=== PATIENT | female | born 1980 | race Caucasian/White ===

== ENCOUNTER 2017-05-13 07:13 | Emergency (ER) | payer OTHER ==
[2017-05-13 07:21] VITALS: BMI 47.1
[2017-05-13] MEDS ORDERED: Sodium Chloride 0.9% 1,000 ML IV STA (07:51)
--- NOTE | 2017-05-13 08:42 | ED PDOC ---
HPI: CCC, URI, Sore Throat Time Seen by Provider: 05/13/17 07:20 Chief Complaint (Nursing): ENT Problem Chief Complaint (Provider): Sore Throat, Fever, Body Aches History Per: Patient History/Exam Limitations: no limitations Have you had recent travel within the past 21 days to any of the following countries: [place], [place], [place] or [place]?: No Current Symptoms Are (Timing): Still Present Location Of Pain: Ear(s), Throat Associated Symptoms: Fever, Sore Throat, Cough (Mild dry Cough) Ear Symptoms: Bilateral: Ear Pain Additional Complaint(s): Manuela Currie, a 4 year old female, presents to the ED complaining of fever x1 day, body aches and sore throat she has been experiencing since last night. The patient states that the sore throat is constant and sever and she has pain when swallowing. She reports that she took nyquil for her fever. The patient further states that she had a mild dry cough and ear pain bilaterally along with malaise and fatigue. Denies any other medical complaints. Past Medical History Reviewed: Historical Data, Nursing Documentation, Vital Signs Vital Signs: Last Vital Signs Temp 98.6 F 05/13/17 10:22 Pulse 88 05/13/17 10:23 Resp 16 05/13/17 10:23 BP 132/75 05/13/17 10:23 Pulse Ox 100 05/13/17 10:23 - Medical History PMH: Asthma, Back Problems, Diabetes, HTN, Hypercholesterolemia Denies: Chronic Kidney Disease - Surgical History Surgical History: Tonsillectomy, (x 3) Other surgeries: Tubal Ligation - Family History Family History: States: Hypertension - Home Medications Home Medications: Ambulatory Orders Medication Instructions Recorded Albuterol Sulfate [Proventil Hfa] 2 puff IH Q6 PRN 06/05/15 GlipiZIDE [Glucotrol] mg PO DAILY 06/05/15 Ibuprofen [Motrin] 600 mg PO Q8 #30 tab 06/05/15 MetFORMIN [glucoPHAGE] 1,000 mg PO BID 06/05/15 Cyclobenzaprine HCl [Flexeril] 10 mg PO BID PRN #12 tab 06/12/15 Ergocalciferol [Vitamin D] 50,000 iu PO Q7D 06/12/15 Losartan [Cozaar] mg PO DAILY 06/12/15 Oxycodone HCl/Acetaminophen 1 tab PO Q6H PRN #10 tab 06/12/15 [Percocet 325 mg-5 mg] Pravastatin Sodium [Pravastatin] mg PO DAILY 06/12/15 Cyclobenzaprine HCl [Flexeril] 10 mg PO BID PRN #12 tab 07/09/15 Ibuprofen [Motrin Tab] 800 mg PO Q8 PRN #20 tab 07/22/15 Azithromycin [Zithromax Z-Michael] 250 mg PO DAILY #1 tab 11/16/15 Prednisone 3 tab-cap PO QAM #12 tab 11/16/15 Oseltamivir [Tamiflu] 75 mg PO BID #10 cap 12/09/16 Promethazine HCl/Codeine 5 - 10 ml PO Q6 PRN #6 oz 12/09/16 [Prometh-Codein 6.25-10 mg/5 ml] predniSONE [predniSONE Tab] 60 mg PO QAM #12 tab 12/09/16 Azithromycin [Z-Michael] 250 mg PO DAILY #6 tab 05/13/17 Ibuprofen [Motrin] 600 mg PO Q6 #20 tab 05/13/17 Oseltamivir [Tamiflu] 75 mg PO BID #10 cap 05/13/17 - Allergies Allergies/Adverse Reactions: Allergies Allergy/AdvReac Type Severity Reaction Status Date / Time Penicillins Allergy RASH Verified 12/09/16 03:31 simvastatin Allergy RASH Verified 12/09/16 03:31 seafood Allergy RASH Uncoded 12/09/16 03:31 Review of Systems ROS Statement: Except As Marked, All Systems Reviewed And Found Negative Constitutional: Positive for: Fever, Malaise, Other (Body aches) ENT: Positive for: Ear Pain (Bilateral ear pain), Throat Pain Respiratory: Positive for: Cough (Mild dry cough) Physical Exam - Reviewed Nursing Documentation Reviewed: Yes Vital Signs Reviewed: Yes - Physical Exam Appears: Positive for: Non-toxic, No Acute Distress Head Exam: Positive for: ATRAUMATIC, NORMAL INSPECTION, NORMOCEPHALIC Skin: Positive for: Normal Color, Warm, Dry Eye Exam: Positive for: Normal appearance, EOMI, PERRL ENT: Positive for: Other (Tonsillar hyperemia enlarged;no peritonsillar abscess ; Ears are normal.). Negative for: Tonsillar Exudate Neck: Positive for: Normal, Painless ROM, Supple Cardiovascular/Chest: Positive for: Regular Rate, Rhythm, Chest Non Tender. Negative for: Bradycardia, Tachycardia Respiratory: Positive for: Normal Breath Sounds. Negative for: Wheezing, Respiratory Distress Gastrointestinal/Abdominal: Positive for: Normal Exam, Bowel Sounds, Soft. Negative for: Tenderness, Guarding, Rebound Back: Positive for: Normal Inspection Extremity: Positive for: Normal ROM. Negative for: Tenderness, Pedal Edema, Deformity, Swelling Neurologic/Psych: Positive for: Alert, Oriented, Gait - Laboratory Results Result Diagrams: 05/13/17 08:06 05/13/17 08:06 - ECG O2 Sat by Pulse Oximetry: 97 (RA) Pulse Ox Interpretation: Normal - Progress Re-evaluation Time: 10:31 Condition: Re-examined, Improved Medical Decision Making Medical Decision Makin Initial Impression: 36 year old female presenting with tonsilitis Differentials: Viral tonsilitis vs Influenza vs Strep throat Initial plan: * Comp Metabolic Panel * Upreg * Udip * CBC * NS 1000mls IV 1000mls/hr * Toradol 30mg IVP * Tylenol 650mg PO * Influenza A B * Rapid strep group * Reevaluation Scribe Attestation Documented by Mary Lou Maloney acting as a scribe for Sunil Kothari MD. Provider Attestation: All medical record entries made by the Scribe were at my direction and personally dictated by me. I have reviewed the chart and agree that the record accurately reflects my personal performance of the history, physical exam, medical decision making, and the department course for this patient. I have also personally directed, reviewed, and agree with the discharge instructions and disposition. Disposition - Clinical Impression Clinical Impression: Influenza A, Strep pharyngitis - Patient ED Disposition Is Patient to be Admitted: No Doctor Will See Patient In The: Office Counseled Patient/Family Regarding: Studies Performed, Diagnosis, Need For Followup - Disposition Referrals: Rina Anderson MD [Medical Doctor] - Disposition: Routine/Home Disposition Time: 10:33 Condition: GOOD Additional Instructions: Take medications as instructed. Follow up with your PCP in 2-3 days. Prescriptions: Azithromycin [Z-Michael] 250 mg PO DAILY #6 tab Ibuprofen [Motrin] 600 mg PO Q6 #20 tab Oseltamivir [Tamiflu] 75 mg PO BID #10 cap Instructions: Influenza (ED), Strep Throat (ED)
[2017-05-13 08:53] LABS: BASO # 0.1 K/uL (0.0-0.2); BASO % 0.3 % (0.0-2.0); EOS % 0.2 % (0.0-4.0); HEMOGLOBIN 12.1 g/dL (12.0-16.0); LYMPH # 1.3 K/uL (1.0-4.3); LYMPH % 6.7 % (20.0-40.0); MEAN CELL VOLUME 85.4 fl (81.0-99.0); MEAN CORPUSCULAR HEMOGLOBIN 28.2 pg (27.0-31.0); MEAN PLATELET VOLUME 8.6 fl (7.2-11.7); MONO # 1.2 K/uL (0.0-0.8); MONO % 6.3 % (0.0-10.0); NEUT # 16.3 K/uL (1.8-7.0); NEUT % 86.5 % (50.0-75.0); NRBC % 0.1 % (0.0-0.0); PLATELET COUNT 278 K/uL (130-400); RBC 4.29 Mil/uL (3.80-5.20); RED CELL DISTRIBUTION WIDTH 14.7 % (11.5-14.5); WHITE BLOOD COUNT 18.8 K/uL (4.8-10.8)
[2017-05-13 09:06] LABS: BLOOD UREA NITROGEN 6 mg/dl (7-17); CALCIUM 8.9 mg/dL (8.4-10.2); GFR AFRICAN-AMERICAN > 60; GFR NON-AFRICAN AMERICAN > 60
[2017-05-13 10:22] VITALS: TEMP 98.6
[2017-05-13 10:24] VITALS: BP 132/75; PULSE 88; RESP 16
[2017-05-13 10:34] VITALS: O2SAT 97
[2017-05-13 12:19] LABS: BANDS 2 % (0-2); LYMPHOCYTE 9 % (20-50); MONOCYTE 6 % (0-10); NEUTROPHIL 83 % (42-75); TOTAL CELLS COUNTED 100
[2017-05-13 12:21] LABS: ANISOCYTOSIS SLIGHT; PLATELET ESTIMATE NORMAL (NORMAL)
[2017-05-13 12:23] LABS: GIANT PLATELETS PRESENT; LARGE PLATELETS PRESENT
== END 2017-05-13 10:54 | disposition home or self-care (01) ==
LOC: H.ER 07:13
DX: J02.0 Streptococcal pharyngitis (principal); J10.1 Influenza due to other identified influenza virus with other respiratory manifestations; J45.909 Unspecified asthma, uncomplicated; E11.9 Type 2 diabetes mellitus without complications; I10 Essential (primary) hypertension; Z88.0 Allergy status to penicillin

== ENCOUNTER 2018-10-03 05:13 | Emergency (ER) | payer OTHER ==
[2018-10-03 05:13] VITALS: BMI 47.1
[2018-10-03 05:33] VITALS: TEMP 98.2; O2SAT 98
--- NOTE | 2018-10-03 06:32 | ED PDOC ---
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 She notes seeing her PMD who referred her to PT and gave her painkillers like percocet, but she reports being tired of taking them and "wants to know what's wrong." PMD: Dr Anderson Past Medical History Reviewed: Historical Data, Nursing Documentation, Vital Signs Vital Signs: Last Vital Signs Temp 98.2 F 10/03/18 05:30 Pulse 90 10/03/18 05:30 Resp 17 10/03/18 05:30 BP 151/98 H 10/03/18 05:30 Pulse Ox 98 10/03/18 05:30 - Medical History PMH: Asthma, Back Problems, Diabetes, HTN, Hypercholesterolemia Denies: Chronic Kidney Disease - Surgical History Surgical History: Tonsillectomy, (x 3) - Family History Family History: States: Hypertension - Social History Current smoker - smoking cessation education provided: No Alcohol: None Drugs: Denies - Home Medications Home Medications: Ambulatory Orders Medication Instructions Recorded Albuterol Sulfate [Proventil Hfa] 2 puff IH Q6 PRN 06/05/15 Ibuprofen [Motrin] 600 mg PO Q8 #30 tab 06/05/15 RX: GlipiZIDE [Glucotrol] mg PO DAILY 06/05/15 RX: MetFORMIN [glucoPHAGE] 1,000 mg PO BID 06/05/15 Cyclobenzaprine HCl [Flexeril] 10 mg PO BID PRN #12 tab 06/12/15 Ergocalciferol [Vitamin D] 50,000 iu PO Q7D 06/12/15 Losartan [Cozaar] mg PO DAILY 06/12/15 Oxycodone HCl/Acetaminophen 1 tab PO Q6H PRN #10 tab 06/12/15 [Percocet 325 mg-5 mg] Pravastatin Sodium [Pravastatin] mg PO DAILY 06/12/15 Cyclobenzaprine HCl [Flexeril] 10 mg PO BID PRN #12 tab 07/09/15 Ibuprofen [Motrin Tab] 800 mg PO Q8 PRN #20 tab 07/22/15 Azithromycin [Zithromax Z-Michael] 250 mg PO DAILY #1 tab 11/16/15 RX: Prednisone 3 tab-cap PO QAM #12 tab 11/16/15 Oseltamivir [Tamiflu] 75 mg PO BID #10 cap 12/09/16 RX: Promethazine HCl/Codeine 5 - 10 ml PO Q6 PRN #6 oz 12/09/16 [Prometh-Codein 6.25-10 mg/5 ml] RX: predniSONE [predniSONE Tab] 60 mg PO QAM #12 tab 12/09/16 Ibuprofen [Motrin] 600 mg PO Q6 #20 tab 05/13/17 Oseltamivir [Tamiflu] 75 mg PO BID #10 cap 05/13/17 RX: Azithromycin [Z-Michael] 250 mg PO DAILY #6 tab 05/13/17 Cyclobenzaprine [Cyclobenzaprine 10 mg PO BID #20 tab 10/03/18 HCl] RX: Naproxen 500 mg PO BID #60 tab 10/03/18 oxyCODONE/Acetaminophen [Percocet 1 ea PO Q6 #16 tab 10/03/18 5/325 mg Tab] - Allergies Allergies/Adverse Reactions: Allergies Allergy/AdvReac Type Severity Reaction Status Date / Time Penicillins Allergy RASH Verified 12/09/16 03:31 simvastatin Allergy RASH Verified 12/09/16 03:31 seafood Allergy RASH Uncoded 12/09/16 03:31 Review of Systems ROS Statement: Except As Marked, All Systems Reviewed And Found Negative Musculoskeletal: Positive for: Back Pain (lower 10/10 radiating down right lower extremity) Physical Exam - Reviewed Nursing Documentation Reviewed: Yes Vital Signs Reviewed: Yes - Physical Exam Appears: Positive for: Uncomfortable Head Exam: Positive for: ATRAUMATIC, NORMOCEPHALIC Skin: Positive for: Normal Color. Negative for: Rash Eye Exam: Positive for: Normal appearance Cardiovascular/Chest: Positive for: Regular Rate, Rhythm Respiratory: Positive for: Normal Breath Sounds. Negative for: Respiratory Distress Back: Positive for: Normal Inspection Extremity: Positive for: Other (straight right leg raise tenderness at 30 degrees) Neurologic/Psych: Positive for: Alert, Oriented (x3) - ECG O2 Sat by Pulse Oximetry: 98 (RA) Pulse Ox Interpretation: Normal Medical Decision Making Medical Decision Making: Time: 614 Initial Impression: 38 year old female with low back pain Initial Plan: --CT LS --U-dip --Flexeril 10mg PO --Toradol 30mg IM --Accucheck 0700 Patient care endorsed from this provider to Dr. Parsons pending CT and reevaluation. Scribe Attestation: Documented by Sushma Rodriguez, acting as a scribe for Clemente Martínez MD. Provider Scribe Attestation: All medical record entries made by the Scribe were at my direction and personally dictated by me. I have reviewed the chart and agree that the record accurately reflects my personal performance of the history, physical exam, medical decision making, and the department course for this patient. I have also personally directed, reviewed, and agree with the discharge instructions and disposition. Disposition - Clinical Impression Clinical Impression: Low back pain - Disposition Referrals: Arvind Lares MD [Staff Provider] - Disposition: Transfer of Care Disposition Time: 07:00 Condition: FAIR Additional Instructions: Take Naproxen twice per day. Take Percocet only for severe pain. Take Flexeril for severe pain. Do not drive or operate machinery when taking Percocet or Flexeril as they cause drowsiness. Contact the neurosurgeon as referred to schedule an appointment. Attend physical therapy as previously scheduled. Return to the emergency department if symptoms worsen or if new symptoms develop. Prescriptions: Cyclobenzaprine [Cyclobenzaprine HCl] 10 mg PO BID #20 tab RX: Naproxen 500 mg PO BID #60 tab oxyCODONE/Acetaminophen [Percocet 5/325 mg Tab] 1 ea PO Q6 #16 tab Instructions: Low Back Pain in Adults, Opioids for Short-Term Treatment of Pain Forms: [employer] (Azeri), [facility] ED School/Work Excuse Print Language: KOSOVAN
--- NOTE | 2018-10-03 07:52 | ED PDOC ---
- ECG O2 Sat by Pulse Oximetry: 98 (RA) Pulse Ox Interpretation: Normal Medical Decision Making Medical Decision Makin:00 Patient presents with chronic back pain, usually with muscle relaxers and opioids at home. Reports severe exacerbation while working overnight. Given Flexeril and Percocet in the ED Pending CT of lumbar spine. Scribe Attestation: Documented by Aisha Pimentel acting as a scribe for Charlee Parsons MD Provider Scribe Attestation: All medical record entries made by the Scribe were at my direction and personally dictated by me. I have reviewed the chart and agree that the record accurately reflects my personal performance of the history, physical exam, medical decision making, and the department course for this patient. I have also personally directed, reviewed, and agree with the discharge instructions and disposition. 8:00 Pt with improved pain. CT shows diffuse disc buldging of lumbar spine. Pt already scheduled for physical therapy next week. Will give referral to regulatory specialist. Rx for Naproxen, Percocet, and Flexeril. Pt advised to not drive or perform dangerous activities while taking Flexeril or Percocet. Work note akbar alexander. Return parameters discussed. Disposition - Clinical Impression Clinical Impression: Low back pain - POA Present On Arrival: None - Disposition Referrals: Arvind Lares MD [Staff Provider] - Disposition: Routine/Home Disposition Time: 08:00 Condition: IMPROVED Additional Instructions: Take Naproxen twice per day. Take Percocet only for severe pain. Take Flexeril for severe pain. Do not drive or operate machinery when taking Percocet or Flexeril as they cause drowsiness. Contact the neurosurgeon as referred to schedule an appointment. Attend physical therapy as previously scheduled. Return to the emergency department if symptoms worsen or if new symptoms develop. Prescriptions: Cyclobenzaprine [Cyclobenzaprine HCl] 10 mg PO BID #20 tab RX: Naproxen 500 mg PO BID #60 tab oxyCODONE/Acetaminophen [Percocet 5/325 mg Tab] 1 ea PO Q6 #16 tab Instructions: Low Back Pain in Adults, Opioids for Short-Term Treatment of Pain Forms: [employer] (Lao), [facility] ED School/Work Excuse Print Language: CITIZEN OF [place]
[2018-10-03 08:30] VITALS: BP 120/77; PULSE 85; RESP 18
--- NOTE | 2018-10-03 11:32 | CT ---
Date of service: 10/03/2018 PROCEDURE: CT Lumbar Spine without contrast HISTORY: low back pain COMPARISON: None available. TECHNIQUE: Axial computed tomography images were obtained of the lumbar spine without the use of intravenous contrast. Coronal and sagittal reformatted images were created and reviewed. Radiation dose: Total exam DLP = 1557.78 mGy-cm. This CT exam was performed using one or more of the following dose reduction techniques: Automated exposure control, adjustment of the mA and/or kV according to patient size, and/or use of iterative reconstruction technique. FINDINGS: VERTEBRAE: Unremarkable. No fracture. Normal alignment. DISCS/SPINAL CANAL/NEURAL FORAMINA: L1-2: Unremarkable. L2-3: Unremarkable. L3-4: Unremarkable. L4-5: There is broad-based posterior disc bulge associated with posterior ligament and facet joint hypertrophy which resulting in mild spinal stenosis. L5-S1: There is a small broad-based disc bulge associated with mild posterior ligament hypertrophy without evidence of significant spinal or neural foraminal narrowing. PARASPINAL SOFT TISSUES: Unremarkable. OTHER FINDINGS: None. IMPRESSION: Posterior disc bulge at L4-L5 and L5-S1 associated with posterior ligament and facet joint hypertrophy which resulting in mild spinal stenosis at L4-L5. Preliminary report was submitted by [facility] Radiology contains concordant findings.
== END 2018-10-03 08:31 | disposition home or self-care (01) ==
LOC: H.ER 05:13
DX: M54.5 Low back pain (principal); E11.9 Type 2 diabetes mellitus without complications; E66.9 Obesity, unspecified; E78.00 Pure hypercholesterolemia, unspecified; I10 Essential (primary) hypertension; Z79.84 Long term (current) use of oral hypoglycemic drugs; Z88.0 Allergy status to penicillin; M48.061 Spinal stenosis, lumbar region without neurogenic claudication
CPT/HCPCS: 72131; 81025; 82948; 96372; 99283; J1885

== ENCOUNTER 2018-11-01 02:18 | Emergency (ER) | payer OTHER ==
[2018-11-01 02:18] VITALS: BMI 47.1
[2018-11-01 02:32] VITALS: O2SAT 98
[2018-11-01] MEDS ORDERED: Sodium Chloride 0.9% 1,000 ML IV STA (02:53)
--- NOTE | 2018-11-01 03:06 | ED PDOC ---
HPI: Abdomen Time Seen by Provider: 11/01/18 02:50 Chief Complaint (Nursing): Abdominal Pain Chief Complaint (Provider): abdominal pain History Per: Patient History/Exam Limitations: no limitations Onset/Duration Of Symptoms: Days (2) Current Symptoms Are (Timing): Still Present Location Of Pain/Discomfort: Epigastric Associated Symptoms: Nausea, Vomiting, Diarrhea Additional Complaint(s): 38 y/o female history of diabetes, hypertension presents for evaluation of abdominal pain x 2 days. Associated vomiting, diarrhea. Patient states she stopped her Metformin on Sunday because she knew she would be drinking alcohol for the holiday and then started it up yesterday, prior to onset of symptoms. Patient states this has happened before. Denies fever, chest pain, shortness of breath, palpitations, urinary symptoms, recent travel, sick contacts. Past Medical History Reviewed: Historical Data, Nursing Documentation, Vital Signs Vital Signs: Last Vital Signs Temp 99.0 F 11/01/18 02:22 Pulse 89 11/01/18 02:22 Resp 17 11/01/18 02:22 BP 144/85 11/01/18 02:22 Pulse Ox 98 11/01/18 02:22 - Medical History PMH: Asthma, Back Problems, Diabetes, HTN, Hypercholesterolemia Denies: Chronic Kidney Disease - Surgical History Surgical History: Tonsillectomy, (x 3) - Family History Family History: States: Hypertension - Home Medications Home Medications: Ambulatory Orders Medication Instructions Recorded Albuterol Sulfate [Proventil Hfa] 2 puff IH Q6 PRN 06/05/15 GlipiZIDE [Glucotrol] mg PO DAILY 06/05/15 Ibuprofen [Motrin] 600 mg PO Q8 #30 tab 06/05/15 MetFORMIN [glucoPHAGE] 1,000 mg PO BID 06/05/15 Cyclobenzaprine HCl [Flexeril] 10 mg PO BID PRN #12 tab 06/12/15 Ergocalciferol [Vitamin D] 50,000 iu PO Q7D 06/12/15 Losartan [Cozaar] mg PO DAILY 06/12/15 Oxycodone HCl/Acetaminophen 1 tab PO Q6H PRN #10 tab 06/12/15 [Percocet 325 mg-5 mg] Pravastatin Sodium [Pravastatin] mg PO DAILY 06/12/15 Cyclobenzaprine HCl [Flexeril] 10 mg PO BID PRN #12 tab 07/09/15 Ibuprofen [Motrin Tab] 800 mg PO Q8 PRN #20 tab 07/22/15 Azithromycin [Zithromax Z-Michael] 250 mg PO DAILY #1 tab 11/16/15 Prednisone 3 tab-cap PO QAM #12 tab 11/16/15 Oseltamivir Cap [Tamiflu] 75 mg PO BID #10 cap 12/09/16 Promethazine HCl/Codeine 5 - 10 ml PO Q6 PRN #6 oz 12/09/16 [Prometh-Codein 6.25-10 mg/5 ml] predniSONE [predniSONE Tab] 60 mg PO QAM #12 tab 12/09/16 Azithromycin [Z-Michael] 250 mg PO DAILY #6 tab 05/13/17 Ibuprofen [Motrin] 600 mg PO Q6 #20 tab 05/13/17 Oseltamivir Cap [Tamiflu] 75 mg PO BID #10 cap 05/13/17 Cyclobenzaprine [Cyclobenzaprine 10 mg PO BID #20 tab 10/03/18 HCl] Naproxen 500 mg PO BID #60 tab 10/03/18 oxyCODONE/Acetaminophen [Percocet 1 ea PO Q6 #16 tab 10/03/18 5/325 mg Tab] Famotidine [Pepcid] 20 mg PO BID #20 tab 11/01/18 Ondansetron ODT [Zofran ODT] 4 mg PO Q8 PRN #10 odt 11/01/18 - Allergies Allergies/Adverse Reactions: Allergies Allergy/AdvReac Type Severity Reaction Status Date / Time Penicillins Allergy RASH Verified 12/09/16 03:31 simvastatin Allergy RASH Verified 12/09/16 03:31 seafood Allergy RASH Uncoded 12/09/16 03:31 Review of Systems ROS Statement: Except As Marked, All Systems Reviewed And Found Negative Gastrointestinal: Positive for: Nausea, Vomiting, Abdominal Pain, Diarrhea Physical Exam - Reviewed Nursing Documentation Reviewed: Yes Vital Signs Reviewed: Yes - Physical Exam Appears: Positive for: Well, Non-toxic, No Acute Distress Head Exam: Positive for: ATRAUMATIC, NORMAL INSPECTION, NORMOCEPHALIC Skin: Positive for: Normal Color Eye Exam: Positive for: Normal appearance ENT: Positive for: Normal ENT Inspection Cardiovascular/Chest: Positive for: Regular Rate, Rhythm Respiratory: Positive for: Normal Breath Sounds Gastrointestinal/Abdominal: Positive for: Bowel Sounds, Soft, Tenderness (epigastric) Back: Positive for: Normal Inspection Extremity: Positive for: Normal ROM Neurologic/Psych: Positive for: Alert, Oriented (x3) - Laboratory Results Result Diagrams: 11/01/18 03:20 11/01/18 03:20 - ECG O2 Sat by Pulse Oximetry: 98 - Progress ED Course And Treament: -accucheck -cbc -cmp -lipase -urinalysis -IV NS bolus -IV zofran -IV pepcid Patient given GI cocktail after experiencing "upset stomach" after drinking juice On re-eval, patient states symptoms improved. Tolerated PO without difficulty Patient educated on findings, discharged with rx Pepcid, zofran Advised follow up PMD within 2-3 days Fluids, bland diet Return precautions given Disposition - Clinical Impression Clinical Impression: Gastroenteritis - Patient ED Disposition Is Patient to be Admitted: No Counseled Patient/Family Regarding: Studies Performed, Diagnosis, Need For Fo llowup, Rx Given - Disposition Disposition: Routine/Home Disposition Time: 06:00 Condition: IMPROVED Prescriptions: Famotidine [Pepcid] 20 mg PO BID #20 tab Ondansetron ODT [Zofran ODT] 4 mg PO Q8 PRN #10 odt PRN Reason: Nausea/Vomiting Instructions: Gastroenteritis (ED) Forms: [employer] (Persian)
[2018-11-01 03:25] LABS: BASO % 0.3 % (0.0-2.0); EOS # 0.1 K/uL (0.0-0.7); EOS % 1.3 % (0.0-4.0); HEMOGLOBIN 11.8 g/dL (12.0-16.0); LYMPH # 1.4 K/uL (1.0-4.3); LYMPH % 23.9 % (20.0-40.0); MEAN CELL VOLUME 90.1 fl (81.0-99.0); MEAN CORPUSCULAR HEMOGLOBIN 28.7 pg (27.0-31.0); MEAN CORPUSCULAR HGB CONC 31.8 g/dL (33.0-37.0); MONO # 0.5 K/uL (0.0-0.8); MONO % 8.3 % (0.0-10.0); NEUT # 3.9 K/uL (1.8-7.0); NEUT % 66.2 % (50.0-75.0); NRBC % 0.3 % (0.0-0.0); RBC 4.13 Mil/uL (3.80-5.20); RED CELL DISTRIBUTION WIDTH 14.5 % (11.5-14.5); WHITE BLOOD COUNT 5.9 K/uL (4.8-10.8)
[2018-11-01 03:39] LABS: ALB/GLOB RATIO 1.1 (1.0-2.1); ALBUMIN 3.6 g/dL (3.5-5.0); ALT/SGPT 29 U/L (9-52); AST/SGOT 23 U/L (14-36); BLOOD UREA NITROGEN 12 mg/dl (7-17); CALCIUM 8.6 mg/dL (8.4-10.2); GFR NON-AFRICAN AMERICAN > 60; LIPASE 73 U/L (23-300)
[2018-11-01 04:42] LABS: SQUAMOUS EPITHIAL 5 /hpf (0-5); URINE BILIRUBIN NEGATIVE (NEGATIVE); URINE BLOOD NEGATIVE (NEGATIVE); URINE CLARITY SLIGHTY-CLOUDY (Clear); URINE COLOR YELLOW (YELLOW); URINE GLUCOSE (UA) >=500 mg/dL (NEGATIVE); URINE LEUKOCYTE ESTERASE NEG Leu/uL (Negative); URINE PROTEIN NEGATIVE (NEGATIVE); URINE UROBILINOGEN 0.2-1.0 mg/dL (0.2-1.0)
[2018-11-01] MEDS ORDERED: Alum-Mag Hydrox-Simethicone Susp (30 mL) PO STA (04:56)
[2018-11-01] MEDS ORDERED: Atrop/Hyos/Scop/PhenoB Elixir PO STA (04:56)
[2018-11-01] MEDS ORDERED: Alum-Mag Hydrox-Simethicone Susp (30 mL) ONE (05:15)
[2018-11-01 07:05] VITALS: BP 139/99; PULSE 86; RESP 16; TEMP 98
== END 2018-11-01 06:45 | disposition home or self-care (01) ==
LOC: H.ER 02:18
DX: K52.9 Noninfective gastroenteritis and colitis, unspecified (principal); E11.9 Type 2 diabetes mellitus without complications; E78.00 Pure hypercholesterolemia, unspecified; I10 Essential (primary) hypertension; Z79.84 Long term (current) use of oral hypoglycemic drugs; Z88.0 Allergy status to penicillin
CPT/HCPCS: 80053; 81003; 82948; 83690; 85025; 96361; 96374; 96375; 99283; J2405; J7030